=== PATIENT | female | born 1955 | race Caucasian/White ===

== ENCOUNTER → 2022-05-10 11:02 | Outpatient (CLI) | payer MEDICARE, MEDICAID, SELFPAY ==
[2022-05-10 20:48] LABS: Add Manual Diff / Slide Review NO; Basophils Absolute Auto 0 /uL (0-100); Basophils Percent Auto 1.2 % (0-2); Eosinophils Absolute Auto 100 /uL (0-450); Eosinophils Percent Auto 3.3 % (2-4); Hematocrit 34.8 % (36-46); Hemoglobin 11.8 g/dL (12.0-16.0); Lymphocytes Absolute Auto 1000 /uL (1100-4500); Lymphocytes Percent Auto 31.1 % (25-40); Mean Corpuscular HGB Conc 33.7 % (30-36); Mean Corpuscular Hemoglobin 31.8 PG (26-34); Mean Corpuscular Volume 94.1 fL (80-100); Monocytes Absolute Auto 200 /uL (0-900); Monocytes Percent Auto 7.2 % (3-14); Neutrophils Absolute Auto 1900 /uL (1500-7000); Neutrophils Percent Auto 57.2 % (50-75); Platelet Count 178 X10^3/uL (150-400); Red Cell Distribution Width 12.5 % (11.6-14.8); White Blood Cell Count 3.2 X10^3/uL (4.5-11.0)
[2022-05-10 21:30] LABS: TSH w/ Reflex to FT4 1.04 uIU/mL (0.47-4.68)
[2022-05-11 02:16] LABS: HEMOLYSIS < 15 (0-50)
[2022-05-11 02:23] LABS: Alanine Aminotransferase 33 IU/L (<35); Albumin 4.1 g/dL (3.5-5.0); Albumin Globulin Ratio 1.1 (1.0-2.8); Alkaline Phosphatase 62 U/L (38-126); Aspartate Aminotransferase 42 IU/L (14-36); BUN Creatinine Ratio 26.2 (6-22); Bilirubin Total 0.2 mg/dL (0.2-1.3); Blood Urea Nitrogen 27 mg/dL (7-17); Calcium 9.5 mg/dL (8.4-10.2); Carbon Dioxide 26 mmol/L (22-32); Chloride 104 mmol/L (98-107); Cholesterol 231 mg/dL (140-199); Estimated Glomerular Filt Rate 60 mL/min (>60); Globulin 3.7 g/dL (1.7-4.1); Glucose 93 mg/dL (80-110); HDL Cholesterol 67 mg/dL (40-60); LDL Cholesterol Calculated 155 mg/dL (<100); Potassium 4.6 mmol/L (3.4-5.1); Sodium 137 mmol/L (137-145); Total Protein 7.8 g/dL (6.3-8.2); Triglycerides 47 mg/dL (35-150)
[2022-05-11 03:27] LABS: Vitamin B12 391 pg/mL (239-931)
[2022-05-12 17:23] LABS: Hep C Virus Ab w/Reflex Quant NEGATIVE s/c (NEGATIVE)
== END ==
PROVIDERS: PCP Family Medicine; Visit Provider Family Medicine
DX: I10 Essential (primary) hypertension (principal); E78.2 Mixed hyperlipidemia; F41.1 Generalized anxiety disorder; Z86.73 Personal history of transient ischemic attack (TIA), and cerebral infarction without residual deficits
CPT/HCPCS: 80053; 80061; 82607; 84443; 85025; 86803

== ENCOUNTER 2022-09-30 10:18 | Emergency (ER) | payer MEDICARE, MEDICAID, SELFPAY ==
[2022-09-30 10:37] VITALS: PULSE 65; RESP 28; O2SAT 99
--- NOTE | 2022-09-30 10:48 | DI.RAD.S_ITS ---
PROCEDURE: XR CHEST 1V INDICATIONS: chest pain TECHNIQUE: One view of the chest was acquired. COMPARISON: None. FINDINGS: Surgical changes and devices: None. Lungs and pleura: Mildly prominent interstitium. No consolidation or effusion. Mediastinum: Mediastinal contours appear normal. Heart size is normal. Bones and chest wall: No suspicious bony lesions. Overlying soft tissues appear unremarkable. IMPRESSION: Mildly prominent pulmonary interstitium could represent mild edema or atypical infection. Consider future imaging surveillance to assess for resolution. Dictated by: Gurwinder Huynh M.D. on 09/30/2022 at 11:20 Approved by: Gurwinder Huynh M.D. on 09/30/2022 at 11:21
[2022-09-30 10:49] VITALS: BP 145/66; PULSE 64; RESP 18; TEMP 36.7; O2SAT 98
[2022-09-30 10:58] LABS: Add Manual Diff / Slide Review NO; Basophils Absolute Auto 0 /uL (0-100); Basophils Percent Auto 0.8 % (0-2); Eosinophils Absolute Auto 100 /uL (0-450); Eosinophils Percent Auto 1.4 % (2-4); Hematocrit 37.4 % (36-46); Hemoglobin 12.6 g/dL (12.0-16.0); Lymphocytes Absolute Auto 1000 /uL (1100-4500); Lymphocytes Percent Auto 25.2 % (25-40); Mean Corpuscular HGB Conc 33.5 % (30-36); Mean Corpuscular Hemoglobin 30.7 PG (26-34); Mean Corpuscular Volume 91.7 fL (80-100); Monocytes Absolute Auto 300 /uL (0-900); Monocytes Percent Auto 7.1 % (3-14); Neutrophils Absolute Auto 2700 /uL (1500-7000); Neutrophils Percent Auto 65.5 % (50-75); Platelet Count 176 X10^3/uL (150-400); Red Blood Cell Count 4.08 X10^6/uL (4.0-5.2); Red Cell Distribution Width 12.8 % (11.6-14.8); White Blood Cell Count 4.1 X10^3/uL (4.5-11.0)
[2022-09-30 11:00] VITALS: PULSE 63; O2SAT 98
[2022-09-30 11:01] VITALS: BP 121/69; PULSE 63; O2SAT 99
[2022-09-30 11:04] LABS: Alanine Aminotransferase 32 IU/L (<35); Albumin 4.4 g/dL (3.5-5.0); Alkaline Phosphatase 63 U/L (38-126); Aspartate Aminotransferase 39 IU/L (14-36); BUN Creatinine Ratio 18.5 (6-22); Bilirubin Total 0.4 mg/dL (0.2-1.3); Blood Urea Nitrogen 24 mg/dL (7-17); Calcium 9.7 mg/dL (8.4-10.2); Carbon Dioxide 29 mmol/L (22-32); Chloride 101 mmol/L (98-107); Creatine Kinase 115 U/L (30-135); Estimated Glomerular Filt Rate 45 mL/min (>60); Globulin 4.2 g/dL (1.7-4.1); Glucose 81 mg/dL (80-110); HEMOLYSIS < 15 (0-50); Lipase 140 U/L (23-300); Magnesium 1.8 mg/dL (1.6-2.3); Potassium 4.6 mmol/L (3.4-5.1); Sodium 137 mmol/L (137-145); Total Protein 8.6 g/dL (6.3-8.2)
[2022-09-30 11:15] LABS: Troponin I < 0.012 ng/mL (0.01-0.034)
[2022-09-30 11:19] LABS: CKMB % Relative Index 1.4 % (1.5-5.0); Creatine Kinase MB 1.56 ng/mL (<2.37)
[2022-09-30 11:22] LABS: INR 1.2 (0.9-1.3); Prothrombin Time 13.4 SECONDS (10.1-12.7)
[2022-09-30 11:25] LABS: PTT Partial Thromboplastin Tim 41 SECONDS (26-36)
[2022-09-30 11:30] VITALS: BP 114/71; PULSE 63; RESP 19; O2SAT 99
--- NOTE | 2022-09-30 11:43 | PC.NURSE ---
pt was making dinner around 1730 last night when she states she had a severe episode of tachycardia that made her fall to her knees, then she has symptoms of high blood pressure (left side of face went numb, left chest tightness, and headache) pt called 911 and was evaluated by EMS. BP was 161/110 when they arrived, 12lead EKG was normal. pt was not given any medications, but eventually BP went down and pt was feeling better. decided to come to ER in the morning after consulting with ER phsyician.
[2022-09-30 12:00] VITALS: BP 111/66; PULSE 61; RESP 20; O2SAT 98
--- NOTE | 2022-09-30 12:15 | ED.CHESTPAIN ---
HPI - Chest Pain General Chief Complaint: Chest Pain Stated Complaint: paramedicis sent heart problems T-1 Time Seen by Provider: 09/30/22 11:35 Source: patient Mode of arrival: Family Vehicle Limitations: no limitations History of Present Illness HPI narrative: Patient here, brought by a friend from home for complaints of chest discomfort palpitations that occurred last night. EMS was called to her home but she declined transfer to the hospital. EKG was reassuring last night by EMS she states. She did call her family doctor this morning and has appointment with Dr. Jackson next Monday. She is currently asymptomatic. No chest pain no palpitations no headache no facial discomfort. She does have history of TIAs. MRI was completed this past few months and reviewed by primary care last month. She is on lisinopril 20 mg a day. 10 mg in the morning and 10 mg at night. She refused cholesterol medication recommended by her primary care. However now she does desire to have it. Again she is currently asymptomatic. No nausea no dyspnea. No syncope. Patient does have family history of coronary disease. She has history of TIAs hypertension hyperlipidemia. She is not had a stress test echocardiogram in years. No previous chest discomfort palpitations in the past year. No nausea vomiting diaphoresis dyspnea syncope, no numbness tingling or weakness. Did not have radiating back pain. No abdominal pain no jaw pain. She felt like her blood pressure was elevated last night and she did take extra dose of lisinopril. She knows her blood pressure is elevated because she has facial discomfort on the left. But no jaw pain or neck pain. Does have slight headache at this time but she states is mild. No slurred speech facial droop or ataxia Related Data Home Medications Medication Instructions Recorded Confirmed aspirin 81 mg tablet,delayed 81 mg PO DAILY Blood thinner 04/13/22 04/21/22 release (Adult Low Dose Aspirin) Previous Rx's Medication Instructions Recorded oxycodone 5 mg tablet 5 mg PO BID PRN pain #2 tabs 04/21/22 diazepam 5 mg tablet 5 mg PO DAILY PRN anxiety #56 tabs 09/29/22 atorvastatin 40 mg tablet (Lipitor) 40 mg PO BEDTIME #90 tabs 09/30/22 lisinopril 20 mg tablet 20 mg PO BID #180 tabs 09/30/22 Allergies Allergy/AdvReac Type Severity Reaction Status Date / Time azithromycin Allergy Intermediate Hives Verified 04/21/22 11:58 penicillin G [PENICILLIN G] Allergy Unknown Verified 04/21/22 11:58 Review of Systems Review of Systems Narrative: GENERAL: negative chills, fatigue, malaise, fever, sweats. HEENT: negative sinus pain, ear pain, sore throat RESPIRATORY: negative dyspnea, cough CARDIOVASCULAR: Positive chest pain, palpitations GASTROINTESTINAL: negative nausea, vomiting, abdominal pain : negative dysuria, frequency, hematuria MUSCULOSKELETAL: negative muscle or bony pain SKIN: negative rash, skin lesions NEUROLOGIC: negative weakness, numbness ROS Unobtainable: All systems reviewed & are unremarkable except as noted in HPI and below Patient History Social History Smoking Status: Never smoker Smoking Status: Never smoker alcohol intake frequency: 0-2 drinks per day Substance Use Type: does not use Exam Narrative Exam Narrative: GENERAL: in no distress, not toxic not dyspneic HEAD: Normocephalic. EYES: Pupils equal round ENT: Mucous membranes moist. NECK: Trachea midline. CARDIOVASCULAR: Regular rate and rhythm, there is soft systolic murmur. No carotid bruits, chest nontender RESPIRATORY: Clear to auscultation. Breath sounds equal bilaterally. No wheezes, rales, or rhonchi. GASTROINTESTINAL: Abdomen soft, non-tender EXTREMITIES: No gross deformities. BACK: No flank tenderness. NEURO: AOx4. SKIN: Warm and dry PSYCH: Not anxious, is cooperative Initial Vital Signs Initial Vital Signs: Vital Signs Pulse Rate 65 09/30/22 10:37 Respiratory Rate 28 H 09/30/22 10:37 Pulse Oximetry 99 09/30/22 10:37 Course Orders Ordered: Discontinued Medications Aspirin (Aspirin 81 Mg Chew Tab) 324 mg PO NOW ONE Stop: 09/30/22 10:49 Last Admin: 09/30/22 11:56 Dose: Not Given Documented By: NR Atorvastatin Calcium (Atorvastatin 20 Mg Tablet) 40 mg PO NOW ONE Stop: 09/30/22 12:27 Last Admin: 09/30/22 12:32 Dose: 40 mg Documented By: NR Vital Signs Vital signs: Vital Signs - 8 hr 09/30/22 10:49 09/30/22 10:37 09/30/22 11:00 Temperature 98.1 F Pulse Rate 64 65 63 Respiratory Rate 18 28 H Blood Pressure 145/66 H Pulse Oximetry 98 99 98 Oxygen Delivery Method Room Air 09/30/22 11:01 09/30/22 11:01 09/30/22 11:30 Temperature Pulse Rate 63 Respiratory Rate Blood Pressure 121/69 114/71 Pulse Oximetry 99 Oxygen Delivery Method 09/30/22 11:30 Temperature Pulse Rate 63 Respiratory Rate 19 Blood Pressure Pulse Oximetry 99 Oxygen Delivery Method MDM - Chest Pain Lab Data 09/30/22 09:42 09/30/22 09:42 Labs: Lab Results 09/30/22 09/30/22 09/30/22 Range/Units 09:42 09:42 09:42 WBC 4.1 L (4.5-11.0) X10^3/uL RBC 4.08 (4.0-5.2) X10^6/uL Hgb 12.6 (12.0-16.0) g/dL Hct 37.4 (36-46) % MCV 91.7 (80-100) fL MCH 30.7 (26-34) PG MCHC 33.5 (30-36) % RDW 12.8 (11.6-14.8) % Plt Count 176 (150-400) X10^3/uL Neut % (Auto) 65.5 (50-75) % Lymph % (Auto) 25.2 (25-40) % [place] % (Auto) 7.1 (3-14) % Eos % (Auto) 1.4 L (2-4) % Baso % (Auto) 0.8 (0-2) % Neut # (Auto) 2700 (1072-7942) /uL Lymph # (Auto) 1000 L (4642-4206) /uL [place] # (Auto) 300 (0-900) /uL Eos # (Auto) 100 (0-450) /uL Baso # (Auto) 0 (0-100) /uL PT 13.4 H (10.1-12.7) SECONDS INR 1.2 (0.9-1.3) APTT 41 H (26-36) SECONDS Sodium 137 (137-145) mmol/L Potassium 4.6 (3.4-5.1) mmol/L Chloride 101 (98-107) mmol/L Carbon Dioxide 29 (22-32) mmol/L BUN 24 H (7-17) mg/dL Creatinine 1.30 H (0.52-1.04) mg/dL Estimated GFR 45 L (>60) mL/min BUN/Creatinine Ratio 18.5 (6-22) Glucose 81 (80-110) mg/dL Calcium 9.7 (8.4-10.2) mg/dL Magnesium 1.8 (1.6-2.3) mg/dL Total Bilirubin 0.4 (0.2-1.3) mg/dL AST 39 H (14-36) IU/L ALT 32 (<35) IU/L Alkaline Phosphatase 63 (38-126) U/L Total Creatine Kinase 115 (30-135) U/L CK-MB (CK-2) 1.56 (<2.37) ng/mL CK-MB (CK-2) Rel Index 1.4 L (1.5-5.0) % Troponin I < 0.012 (0.01-0.034) ng/mL Total Protein 8.6 H (6.3-8.2) g/dL Albumin 4.4 (3.5-5.0) g/dL Globulin 4.2 H (1.7-4.1) g/dL Albumin/Globulin Ratio 1.0 (1.0-2.8) Lipase 140 (23-300) U/L Imaging Data Chest x-ray: Radiologist's Impression: [address] [address] XRay Report Signed Patient: Zaira Virk MR#: [id number] : 1955 Acct:[id number] Age/Sex: 67 / F Date of Service: 09/30/22 Loc: ED Accession Number: [id number] ?? Procedure: XR chest 1V Ordering Provider: Usman Lemos MD PROCEDURE:? XR CHEST 1V ? INDICATIONS:? chest pain ? TECHNIQUE:? One view of the chest was acquired.? ? COMPARISON:? None. ? FINDINGS:? ? Surgical changes and devices:? None.? ? Lungs and pleura:? Mildly prominent interstitium.? No consolidation or effusion. ? Mediastinum:? Mediastinal contours appear normal.? Heart size is normal.? ? Bones and chest wall:? No suspicious bony lesions.? Overlying soft tissues appear unremarkable.? ? IMPRESSION:? Mildly prominent pulmonary interstitium could represent mild edema or atypical infection.? Consider future imaging surveillance to assess for resolution. ? ? ? Dictated by: Gurwinder Huynh M.D. on 09/30/2022 at 11:20 ? ? Approved by: Gurwinder Huynh M.D. on 09/30/2022 at 11:21 ? [facility] Narrative Medical decision making narrative: Patient here, brought by a friend from home for complaints of chest discomfort palpitations that occurred last night. EMS was called to her home but she declined transfer to the hospital. EKG was reassuring last night by EMS she states. She did call her family doctor this morning and has appointment with Dr. Jackson next Monday. She is currently asymptomatic. No chest pain no palpitations no headache no facial discomfort. She does have history of TIAs. MRI was completed this past few months and reviewed by primary care last month. She is on lisinopril 20 mg a day. 10 mg in the morning and 10 mg at night. She refused cholesterol medication recommended by her primary care. However now she does desire to have it. Again she is currently asymptomatic. No nausea no dyspnea. No syncope. Patient does have family history of coronary disease. She has history of TIAs hypertension hyperlipidemia. She is not had a stress test echocardiogram in years. No previous chest discomfort palpitations in the past year. No nausea vomiting diaphoresis dyspnea syncope, no numbness tingling or weakness. Did not have radiating back pain. No abdominal pain no jaw pain. She felt like her blood pressure was elevated last night and she did take extra dose of lisinopril. She knows her blood pressure is elevated because she has facial discomfort on the left. But no jaw pain or neck pain. Does have slight headache at this time but she states is mild. No slurred speech facial droop or ataxia After history and exam CBC CMP troponin chest x-ray EKG have been ordered [facility] CC: Palpitations/high blood pressure/chest pain Complicating co-morbidities: Hypertension hypercholesteremia TIA Data collected from: Patient Medical records reviewed: Primary care office visit last month with Dr. Jackson Differential considered: Includes but not limited to STEMI non-STEMI stable angina unstable angina palpitations Exam documented above, pertinent findings include: No chest pain no chest tenderness Lab Test results independently reviewed as above. Pertinent findings: WBC 4.1 hemoglobin 12.6 hematocrit 37 PT 13.4 INR 1.2 PTT 41 sodium 137 AST 39 ALT 32 troponin less than 0.012 Independently reviewed EKG as above normal sinus rhythm normal EKG rate [address] elevation or depression Imaging studies independently reviewed: Mild prominent pulmonary interstitium could represent mild edema or atypical infection. Consultations: 12:10 p.m.. Spoke with public accountant on-call, Dr. Dahl, at this time, he has reviewed with me patient's medical history as well as laboratory studies and EKG and troponin, he would like patient to be discharged home and follow up with primary care for outpatient stress test, no indication for admit today. 12:[address] Jackson, her family doctor, he agrees with treatment plan and he will schedule patient outpatient stress test echocardiogram. He will make changes prescriptions for her lisinopril 20 mg twice a day. He will write for atorvastatin 40 mg daily. I will start patient today with atorvastatin. She is scheduled to see her next Monday Treatments: Re-evaluations: I did review with patient results, blood pressure has improved 111/60. No medications given here for blood pressure. I spoke with her my discussion with Cardiology on-call and she agrees for follow-up with primary care for stress test. She is comfortable with this plan. Currently chest pain-free. Has no discomfort since last night. Return precautions reviewed with her. I did review with her primary care provider for treatment plan and medication changes as well. Discussion: Appropriate for discharge home. Exam and laboratory studies EKG troponin and chest x-ray are reassuring. No symptoms during course of stay. I did review with public accountant as well as primary care for treatment plan. Return precautions reviewed with patient. She desires discharge home. Diagnosis: Chest pain/palpitations Discharge Plan Departure Patient Disposition: Home Clinical Impression: Chest pain Instructions: DI for Chest Pain Activity Restrictions/Additional Instructions: Please see your family doctor next week as scheduled. I have contacted him today and medication changes have been made for you. You will need to schedule outpatient stress test and echocardiogram. At this time laboratory studies EKG and chest x-ray are reassuring. Please continue home medications as instructed. Return if worse if any questions or concerns. You will be taking atorvastatin 40 mg once a day. You will increase your lisinopril 20 mg twice a day.. Prescriptions: No Action diazepam 5 mg tablet 5 mg PO DAILY PRN (Reason: anxiety) Qty: 56 0RF Rx Instructions: Must last 56 days. Release date 09/29/22 lisinopril 20 mg tablet 20 mg PO BID Qty: 180 0RF atorvastatin [Lipitor] 40 mg tablet 40 mg PO BEDTIME Qty: 90 3RF oxycodone 5 mg tablet 5 mg PO BID PRN (Reason: pain) Qty: 2 0RF aspirin [Adult Low Dose Aspirin] 81 mg tablet,delayed release (DR/EC) 81 mg PO DAILY Referrals: Herman Jackson MD [Primary Care Provider] - Stand Alone Forms: Patient Portal/API
[2022-09-30] MEDS: ATORVASTATIN 20 MG TABLET 40 MG PO (12:32)
== END 2022-09-30 12:40 | disposition home or self-care (01) ==
PROVIDERS: Emergency Provider Emergency Medicine; PCP Family Medicine
DX: R07.9 Chest pain, unspecified (principal)
CPT/HCPCS: 36415; 71045; 80053; 82550; 82553; 83690; 83735; 84484; 85025; 85610; 85730; 93005; 99284

== ENCOUNTER → 2022-11-07 10:32 | Outpatient (CLI) | payer MEDICARE, MEDICAID, SELFPAY ==
[2022-11-07 20:04] LABS: BUN Creatinine Ratio 15.2 (6-22); Blood Urea Nitrogen 17 mg/dL (7-17); Calcium 9.5 mg/dL (8.4-10.2); Carbon Dioxide 31 mmol/L (22-32); Chloride 100 mmol/L (98-107); Cholesterol 173 mg/dL (140-199); Estimated Glomerular Filt Rate 54 mL/min (>60); Glucose 87 mg/dL (80-110); HDL Cholesterol 67 mg/dL (40-60); HEMOLYSIS < 15 (0-50); LDL Cholesterol Calculated 97 mg/dL (<100); Potassium 4.4 mmol/L (3.4-5.1); Sodium 136 mmol/L (137-145); Triglycerides 47 mg/dL (35-150)
== END ==
PROVIDERS: PCP Family Medicine; Visit Provider Family Medicine
DX: R07.89 Other chest pain (principal); E78.2 Mixed hyperlipidemia; I10 Essential (primary) hypertension; Z86.73 Personal history of transient ischemic attack (TIA), and cerebral infarction without residual deficits
CPT/HCPCS: 80048; 80061

== ENCOUNTER → 2023-01-09 09:46 | Outpatient (CLI) | payer MEDICARE, MEDICAID, SELFPAY ==
[2023-01-09 20:14] LABS: Cholesterol 230 mg/dL (140-199); HDL Cholesterol 68 mg/dL (40-60); LDL Cholesterol Calculated 153 mg/dL (<100); Triglycerides 46 mg/dL (35-150)
== END ==
PROVIDERS: PCP Family Medicine; Visit Provider Family Medicine
DX: E78.2 Mixed hyperlipidemia (principal); Z86.73 Personal history of transient ischemic attack (TIA), and cerebral infarction without residual deficits
CPT/HCPCS: 80061

== ENCOUNTER → 2023-05-09 10:16 | Outpatient (CLI) | payer MEDICARE, MEDICAID, SELFPAY ==
[2023-05-09 19:10] LABS: BUN Creatinine Ratio 16.7 (6-22); Blood Urea Nitrogen 18 mg/dL (7-17); Calcium 11.1 mg/dL (8.4-10.2); Carbon Dioxide 30 mmol/L (22-32); Chloride 94 mmol/L (98-107); Cholesterol 247 mg/dL (140-199); Estimated Glomerular Filt Rate 56 mL/min (>60); Glucose 91 mg/dL (80-110); HDL Cholesterol 54 mg/dL (40-60); HEMOLYSIS < 15 (0-50); LDL Cholesterol Calculated 180 mg/dL (<100); Potassium 4.8 mmol/L (3.4-5.1); Sodium 133 mmol/L (137-145); Triglycerides 65 mg/dL (35-150)
[2023-05-09 19:29] LABS: Add Manual Diff / Slide Review NO; Basophils Absolute Auto 0 /uL (0-100); Eosinophils Absolute Auto 0 /uL (0-450); Eosinophils Percent Auto 1.2 % (2-4); Hemoglobin 12.3 g/dL (12.0-16.0); Lymphocytes Absolute Auto 1000 /uL (1100-4500); Lymphocytes Percent Auto 27.5 % (25-40); Mean Corpuscular HGB Conc 34.2 % (30-36); Mean Corpuscular Hemoglobin 31.5 PG (26-34); Mean Corpuscular Volume 92.3 fL (80-100); Monocytes Absolute Auto 300 /uL (0-900); Monocytes Percent Auto 8.8 % (3-14); Neutrophils Absolute Auto 2100 /uL (1500-7000); Neutrophils Percent Auto 61.5 % (50-75); Platelet Count 206 X10^3/uL (150-400); Red Cell Distribution Width 12.8 % (11.6-14.8); White Blood Cell Count 3.5 X10^3/uL (4.5-11.0)
[2023-05-09 19:41] LABS: TSH w/ Reflex to FT4 1.65 uIU/mL (0.47-4.68)
== END ==
PROVIDERS: PCP Family Medicine; Visit Provider Family Medicine
DX: I10 Essential (primary) hypertension (principal); E78.2 Mixed hyperlipidemia; F41.1 Generalized anxiety disorder; R79.89 Other specified abnormal findings of blood chemistry; Z86.73 Personal history of transient ischemic attack (TIA), and cerebral infarction without residual deficits
CPT/HCPCS: 80048; 80061; 84443; 85025

== ENCOUNTER → 2024-12-04 11:24 | Outpatient (CLI) | payer MEDICARE, MEDICAID, SELFPAY ==
[2024-12-04 19:16] LABS: BUN Creatinine Ratio 17.6 (6-22); Blood Urea Nitrogen 19 mg/dL (7-17); Calcium 10.1 mg/dL (8.4-10.2); Carbon Dioxide 29 mmol/L (22-32); Chloride 103 mmol/L (98-107); Cholesterol 262 mg/dL (140-199); Estimated Glomerular Filt Rate 56 mL/min (>60); Glucose 90 mg/dL (70-99); HDL Cholesterol 84 mg/dL (40-60); HEMOLYSIS < 15 (0-50); LDL Cholesterol Calculated 170 mg/dL (<100); Potassium 4.4 mmol/L (3.4-5.1); Sodium 137 mmol/L (137-145); Triglycerides 41 mg/dL (35-150)
[2024-12-04 19:22] LABS: Add Manual Diff / Slide Review NO; Basophils Absolute Auto 0 /uL (0-100); Basophils Percent Auto 1.3 % (0-2); Eosinophils Absolute Auto 0 /uL (0-450); Eosinophils Percent Auto 1.3 % (2-4); Hemoglobin 12.8 g/dL (12.0-16.0); Lymphocytes Absolute Auto 1100 /uL (1100-4500); Lymphocytes Percent Auto 32.2 % (25-40); Mean Corpuscular HGB Conc 33.8 % (30-36); Mean Corpuscular Volume 94.7 fL (80-100); Monocytes Absolute Auto 200 /uL (0-900); Monocytes Percent Auto 5.6 % (3-14); Neutrophils Absolute Auto 2000 /uL (1500-7000); Neutrophils Percent Auto 59.6 % (50-75); Platelet Count 163 X10^3/uL (150-400); Red Blood Cell Count 4.01 X10^6/uL (4.0-5.2); Red Cell Distribution Width 12.9 % (11.6-14.8); White Blood Cell Count 3.4 X10^3/uL (4.5-11.0)
[2024-12-06 09:12] LABS: Calcium 10.1 mg/dL (8.7-10.3); Parathyroid Hormone, Intact 65 pg/mL (15-65)
[2024-12-09 15:11] LABS: Albumin 3.5 g/dL (2.9-4.4); Alpha 1 Globulin 0.2 g/dL (0.0-0.4); Alpha 2 Globulin 0.7 g/dL (0.4-1.0); Beta 1 Globulin 0.9 g/dL (0.7-1.3); Gamma Globulin 2.1 g/dL (0.4-1.8); Protein, Total 7.5 g/dL (6.0-8.5)
== END ==
PROVIDERS: PCP Family Medicine; Visit Provider Family Medicine
DX: E83.52 Hypercalcemia; I12.9 Hypertensive chronic kidney disease with stage 1 through stage 4 chronic kidney disease, or unspecified chronic kidney disease; N18.31 Chronic kidney disease, stage 3a; Z86.73 Personal history of transient ischemic attack (TIA), and cerebral infarction without residual deficits; D72.819 Decreased white blood cell count, unspecified; E78.2 Mixed hyperlipidemia; Z79.899 Other long term (current) drug therapy
CPT/HCPCS: 80048; 80061; 80305; 82310; 83970; 84155; 84165; 85025

== ENCOUNTER → 2025-03-10 10:01 | Outpatient (CLI) | payer MEDICARE, MEDICAID, SELFPAY ==
[2025-03-10 20:06] LABS: Blood Urea Nitrogen 17 mg/dL (7-17); Calcium 9.9 mg/dL (8.4-10.2); Carbon Dioxide 27 mmol/L (22-32); Chloride 101 mmol/L (98-107); Cholesterol 231 mg/dL (140-199); Estimated Glomerular Filt Rate 58 mL/min (>60); Glucose 96 mg/dL (70-99); HDL Cholesterol 71 mg/dL (40-60); HEMOLYSIS 20 (0-50); Magnesium 1.9 mg/dL (1.6-2.3); Potassium 4.4 mmol/L (3.4-5.1); Sodium 135 mmol/L (137-145); Triglycerides 61 mg/dL (35-150)
== END ==
PROVIDERS: PCP Family Medicine; Visit Provider Family Medicine
DX: N18.31 Chronic kidney disease, stage 3a (principal); E78.2 Mixed hyperlipidemia; Z79.899 Other long term (current) drug therapy; I10 Essential (primary) hypertension; Z86.73 Personal history of transient ischemic attack (TIA), and cerebral infarction without residual deficits
CPT/HCPCS: 80048; 80061; 83735